=== PATIENT | female | born 1955 | race Caucasian/White ===

== ENCOUNTER 2018-04-30 06:44 | Day surgery (SDC) | payer OTHER ==
[~2018-04-30] VITALS: Ht 167.6 cm; Wt 55.1 kg
[~2018-04-30 06:44] MED LIST: B-121000 MCG PO; ELIQUIS 2.5 PO; LYRICA300 MG PO; NORVASC 5MG5 MG/TAB PO; PRINIVIL10 MG PO; PROAIR HFA0.09 MG/AC IH; RT ADVAIR HFA 1112 G IH; RT SPIRIVA18 MCG IH; ULTRAM 50MG TAB50 MG PO
[2018-04-30] MEDS ORDERED: FLONASEALLERGY NS (07:10)
[2018-04-30] MEDS ORDERED: ELIQUIS 5MG PO (07:11)
[2018-04-30] MEDS ORDERED: MOBIC15 MG PO (07:11)
[2018-04-30 07:12] VITALS: BP 132/67; PULSE 96; TEMP 99
[2018-04-30 09:28] VITALS: BP 134/68; PULSE 95; TEMP 98.3
[2018-04-30 09:43] VITALS: BP 130/70; PULSE 93
[2018-04-30 09:58] VITALS: BP 106/65; PULSE 94
[2018-04-30 10:13] VITALS: BP 102/64; PULSE 94
[2018-04-30 13:55] VITALS: BP 121/76; PULSE 98
== END 2018-04-30 10:35 | disposition home or self-care (01) ==
LOC: SDCO 06:44
DX: C79.89 Secondary malignant neoplasm of other specified sites (principal); J44.9 Chronic obstructive pulmonary disease, unspecified; R09.02 Hypoxemia; J30.9 Allergic rhinitis, unspecified; J38.01 Paralysis of vocal cords and larynx, unilateral; I10 Essential (primary) hypertension; M19.90 Unspecified osteoarthritis, unspecified site; K21.9 Gastro-esophageal reflux disease without esophagitis; G89.29 Other chronic pain; M54.5 Low back pain; Z88.8 Allergy status to other drugs, medicaments and biological substances; Z79.01 Long term (current) use of anticoagulants; Z86.718 Personal history of other venous thrombosis and embolism; Z87.891 Personal history of nicotine dependence
CPT/HCPCS: J0330; J2704; J7120

== ENCOUNTER 2018-12-01 21:13 | Inpatient (IN) | payer OTHER ==
[2018-12-01] VITALS (164 sets, daily range): BP systolic 129; BP diastolic 88; PULSE 117; TEMP 98.6; O2SAT 83–100
[~2018-12-01] VITALS: Ht 167.6 cm; Wt 48.0 kg
[~2018-12-01 21:13] MED LIST changes: +ELIQUIS 5MG PO; +FLONASEALLERGY NS; +MOBIC15 MG PO
--- NOTE | 2018-12-01 22:11 | NUR ---
Pt is very anxious, cannot sit still, and wants a cigarette. Pt informed we can provide her a nicotine patch. Pt denies pain upon arrival and during assessment states her bilat feet/legs hurt 710 described as shooting pain from peripheral neuropathy. Pts left ac iv from [facility] upon arrival was infiltrated; site was red and arm swollen. IV was discontinued and site was shown to hospitalist Ashutosh.
--- NOTE | 2018-12-01 22:30 | NUR ---
Pt is unfamiliar with own medications; names, doses, and last taken. Pt has no list.
--- NOTE | 2018-12-01 22:53 | NUR ---
Pt is removing nasal canula and pulling at cords. Pt redirected.
--- NOTE | 2018-12-01 23:47 | NUR ---
NICOTINE PATCH PLACED ON LEFT SHOULDER.
[2018-12-02] VITALS (618 sets, daily range): BP systolic 101–142; BP diastolic 63–104; PULSE 105–127; TEMP 98–99; O2SAT 53–100
[2018-12-02 00:12] LABS: TRICYCLIC ANTIDEPRESS URINE NEGATIVE
--- NOTE | 2018-12-02 03:00 | NUR ---
Pt pulled off ECG leads, sp02 monitor, gown, and right hand IV. Pt in recliner restless, naked, in and out of sleep. Pt reconnected to monitor and redressed in gown. Lab in room and pt kicking legs and making mouning sounds. Pt aware of location and person, but does not know president or current month unlike when she arrived.
[2018-12-02 03:36] LABS: HEMATOCRIT 38.3 % (37.0-47.0); HEMOGLOBIN 12.9 g/dl (12.5-16.0); MEAN CELL VOLUME 89 fl (80.0-100.0); MEAN CORPUSCULAR HEMOGLOBIN 30 pg (27.0-31.0); MEAN CORPUSCULAR HGB CONC 34 g/dl (33.0-37.0); MEAN PLATELET VOLUME 9.8 fl (7.4-10.4); PLATELET COUNT 407 K/mm3 (130-400)
[2018-12-02 03:45] LABS: ALANINE AMINOTRANSFERASE < 6 U/L (9-52); ALBUMIN 3.8 gm/dL (3.5-5.0); ALKALINE PHOSPHATASE 71 U/L (50-136); ANION GAP 12 mmol/L (7-16); AST,SGOT 16 U/L (15-37); BILIRUBIN,TOTAL 0.5 mg/dL (0.0-1.0); BLOOD UREA NITROGEN 26 mg/dL (7-17); CARBON DIOXIDE 25 mmol/L (22-30); CHLORIDE 102 mmol/L (98-107); CREATININE, serum 0.51 (0.52-1.25); GLUCOSE 228 mg/dL (74-106); POTASSIUM 3.3 mmol/L (3.4-5.0); SODIUM 139 mmol/L (137-145); TOTAL PROTEIN 7.1 gm/dL (6.4-8.2)
--- NOTE | 2018-12-02 03:45 | NUR ---
Pt pulling gown off, sitting in recliner, restless.
--- NOTE | 2018-12-02 03:54 | NUR ---
PT STATES SHE'S "REARRANGING" HER GOWN AND WHEN SHE PULLS GOWN OFF. PT WISHES TO REMAIN IN RECLINER FOR COMFORT. GOWN PLACED BACK ON PT.
[2018-12-02 04:08] LABS: BAND 21 % (0-10); NEUTROPHILS 79 % (42.0-75.2); PLATELET ESTIMATE INCREASED (NORMAL)
[2018-12-02 04:10] LABS: OVALOCYTES 1+
--- NOTE | 2018-12-02 04:30 | NUR ---
BEDSIDE STOOL OCCULT PERFORMED - POSTIVE OCCULT STOOL.
--- NOTE | 2018-12-02 04:45 | NUR ---
PT PLACED ON 6L OM.
--- NOTE | 2018-12-02 04:51 | NUR ---
PT REPEATEDLY REMOVING OXYMASK. PT REMINDED TO LEAVE OXYGEN ON FACE.
--- NOTE | 2018-12-02 06:55 | NUR ---
Bedside report received from SHAKILA Sheppard. Patient restless, biting at mitts, trying to climb out of bed, rolling from side to side, this RN attemped IV's times two, both blown, with 3 nurses holding patient down. Fall precautions in place, bed alarm on for patient safety.
--- NOTE | 2018-12-02 07:15 | NUR ---
REPORT GIVEN TO SHAKILA GARCIA.
--- NOTE | 2018-12-02 07:31 | NUR ---
Notified [facility] of need for picc line.
--- NOTE | 2018-12-02 08:31 | NUR ---
[facility], here to place picc line.
[2018-12-02 09:16] LABS: HEMATOCRIT 36.2 % (37.0-47.0)
[2018-12-02] MEDS ORDERED: ELIQUIS 2.5 PO ×2 (10:59→12:32)
[2018-12-02] MEDS ORDERED: NORCO 325 MG-51 TAB PO (11:00)
[2018-12-02] MEDS ORDERED: PREDNISONE20 MG PO (11:01)
--- NOTE | 2018-12-02 11:01 | NUR ---
Dr. Tolentino here to speak with patient's .
--- NOTE | 2018-12-02 11:04 | NUR ---
LR bolus initiated.
--- NOTE | 2018-12-02 11:25 | NUR ---
Dr. Tolentino here for intubation, time out performed at this time. Sarah,RN and RadhaRN, Patience,RT, Gonzalez Sheppard RT student, all at bedside. 1127- [address] given [address] Dr. Tolentino 1128- Blood suctioned from oral cavity. 7.5 ETT tubed placed, + ETCO2, blood noted in ETT. 50 mg propofol additional given. 1130- 10 mg vecuronium given 1132- Placed on ventilator by RT. 1136- Bronchoscopy performed by Dr. Tolentino. 1140- Precedex gtt turned off. Propofol gtt initiated at 10mcg/kg/min=2.9 ml/hr, Fentanyl gtt initiated at 25mcg/hr=1.3ml/hr.
--- NOTE | 2018-12-02 11:49 | NUR ---
JIM met with the patient and her Blas. Due to the patient's condition the patient could not answer assessement questions. The pt lives in [place] with Blas. The pt has a cane and is independent with ADLs. The pt's PCP is Dr Smith from the [facility] and the pt receives her medications from the [facility] with no difficulties. The pt does not have advanced directives in the EMR. Blas will transport the pt home upon discharge. JIM will continue to follow for recommendations and assist with any discharge needs.
[2018-12-02] MEDS ORDERED: LYRICA300 MG PO (12:29)
[2018-12-02] MEDS ORDERED: VITAMIN B12 1541 TAB PO (12:29)
[2018-12-02] MEDS ORDERED: SPIRIVA RE2.5 MCG/Ac IH (12:30)
[2018-12-02] MEDS ORDERED: NORVASC 5MG5 MG/TAB PO (12:30)
[2018-12-02] MEDS ORDERED: ULTRAM 50MG TAB50 MG PO (12:30)
[2018-12-02] MEDS ORDERED: RT ADVAIR HFA 1112 G IH (12:31)
[2018-12-02 13:13] LABS: INR 1.2 (0.8-3.0); PROTHROMBIN TIME 13.8 SECONDS (9.7-12.8)
--- NOTE | 2018-12-02 13:15 | NUR ---
signs consent for EGD with Dr. Burch, scheduled for 1690.
[2018-12-02 13:17] LABS: HEMATOCRIT 26.9 % (37.0-47.0); HEMOGLOBIN 8.9 g/dl (12.5-16.0)
--- NOTE | 2018-12-02 13:30 | NUR ---
To CT via bed, being bagged by Patience,RT, Gonzalez Sheppard RT student, PERI Baker tech, and this RN, Propofol gtt 10mcg/kg/min=2.9ml\hr, Fentanyl gtt 25mcg/hr=1.3ml/hr infusing for transport. LR and KCL on hold for transport.
--- NOTE | 2018-12-02 13:36 | NUR ---
VS in CT. 1336- 148/88, 128, 93% on FIO2 60% 1345- 138/82, 127, 93% on FI02 60% 1355-Noted blood in ET tube and circuit. Sats dropping to 90% 1356- Notified RadhaRN for assistance, PerlaRN notified for assistance, Dr. Tolentino notified. 1400- Patient back in ICU. 1402- PEA-code called, see code sheet.
--- NOTE | 2018-12-02 14:00 | NUR ---
Patient returned from CT, being bagged by Patience,RT. Pt. with copious amounts of hemoptosis. 1402- Patient PEA, see code sheet.
--- NOTE | 2018-12-02 14:02 | NUR ---
CPR STARTED ON PT UPON ARRIVAL BACK INTO ICU. TRANSPORT TO CT WAS UNEVENTFUL. TOWARDS THE END OF CT SCAN VENTILATOR WAS ALARMING LOW VE/HIGH PIP/LOW VT. UPON INSPECTION OF PT LARGE AMOUNTS OF WILFRID BLOOD WERE NOTED IN OETT. SCANNING WAS STOPPED AND OETT WAS SUCTIONED. A LARGE CLOT WAS NOTED TO BE IN MAN. MAN WAS DISCONNECTED FOR CLOT TO BE REMOVED. UPON TRANSPORT BACK TO ICU AGAIN THE ALARMS FOR PIP/VE AND LOW VT WERE SOUNDING. PT WAS TAKEN OFF VENT AND MANUALLY VENTILATED. IT WAS VERY HARD TO MANUALLY VENTILATE AT THIS TIME AND SPO2 WAS DROPPING ON 100% FIO2. PT WAS RUSHED BACK TO ICU WHERE OETT WAS SUCTIONED AND LAVAGED MULTIPLE TIMES FOR MULTIPLE LARGE CLOTS. ALL OF THIS WAS BEING DONE SIMULTANEOUSLY WITH CPR.
--- NOTE | 2018-12-02 15:10 | NUR ---
Initial Code Blue: Supervisor [employer] offered prayer for the and offered spiritual care for patient's .
--- NOTE | 2018-12-02 15:22 | NUR ---
Call placed to [facility]. Patient is a self declared donar on the registory. She meets critera for the [facility]. [facility] will call with further questions in the near future. Will await the call. Report given to patient's nurse, SHAKILA Allred. Confirmation # [id number]
--- NOTE | 2018-12-02 15:46 | NUR ---
left at this time.
--- NOTE | 2018-12-02 15:52 | NUR ---
Message left with Dr. Higgins's office that consult was no longer needed.
--- NOTE | 2018-12-02 15:55 | NUR ---
The patient . JIM met with Blas to discuss home arrangements. He chose [facility] in [place] . cloth napping supervisor contacted [facility] and is to contact home. There are no additional needs at this time.
--- NOTE | 2018-12-02 16:15 | NUR ---
Update given to [facility] with patients spouse's number. At this time patient would be a candidate for eye donation. Will recieve call back after spouse makes decision regarding donation
--- NOTE | 2018-12-02 16:30 | NUR ---
Post [place] care, all lines and tubes performed and removed by SHAKILA Díaz (stock house worker.) Saline drops to eyes, ice packs applied.
--- NOTE | 2018-12-02 17:45 | NUR ---
Call recieved from [facility]. They had spoken with family and they are in agreement with eye donation. [facility] agency will call this nurse back with ETA of procurement team.
--- NOTE | 2018-12-02 18:26 | NUR ---
Call recieved from [facility]. Will be here about 2029 tonight for eye procurement
--- NOTE | 2018-12-02 19:00 | NUR ---
Report received from Brigida JHAVERI. Pt has ice on eyes with reapplication of NS at this time.
--- NOTE | 2018-12-02 19:10 | NUR ---
Bedside report given to SHAKILA Hammonds, saline applied to eyes, ice packs in place.
--- NOTE | 2018-12-02 20:30 | NUR ---
Eye team here at this time. They decline needs of assistance at this time.
--- NOTE | 2018-12-02 20:45 | NUR ---
[employer] techs at bedside.
--- NOTE | 2018-12-02 23:30 | NUR ---
[employer] techs are complete and have left the facility.
--- NOTE | 2018-12-03 00:42 | NUR ---
Mortur[employer] personal took the pt body. No personal belongings were noted to be with pt at this time, verified by hotel housekeeper. Record of signed, copy made of face sheet and record- provided to [facility].
== END 2018-12-03 00:42 | disposition expired | DRG 374 ==
LOC: ICU 21:13
PROVIDERS: Internal Medicine Gastroenterology; Internal Medicine Pulmonary Disease; Nurse Practitioner; ADMIT Family Medicine
PROC: 0BH17EZ Insertion of Endotracheal Airway into Trachea, Via Natural or Artificial Opening (ICD-10-PCS; principal; 2018-12-02)
PROC: 5A1935Z Respiratory Ventilation, Less than 24 Consecutive Hours (ICD-10-PCS; 2018-12-02)
PROC: 0BDC8ZX Extraction of Right Upper Lung Lobe, Via Natural or Artificial Opening Endoscopic, Diagnostic (ICD-10-PCS; 2018-12-02)
PROC: 02HV33Z Insertion of Infusion Device into Superior Vena Cava, Percutaneous Approach (ICD-10-PCS; 2018-12-02)
DX: C78.89 Secondary malignant neoplasm of other digestive organs (principal); J96.01 Acute respiratory failure with hypoxia; C79.31 Secondary malignant neoplasm of brain; J44.1 Chronic obstructive pulmonary disease with (acute) exacerbation; E87.2 Acidosis; R04.2 Hemoptysis; C34.90 Malignant neoplasm of unspecified part of unspecified bronchus or lung; G93.40 Encephalopathy, unspecified; I72.8 Aneurysm of other specified arteries; F41.9 Anxiety disorder, unspecified; G62.9 Polyneuropathy, unspecified; F32.9 Major depressive disorder, single episode, unspecified; Z79.01 Long term (current) use of anticoagulants; Z79.891 Long term (current) use of opiate analgesic; Z88.2 Allergy status to sulfonamides; Z86.718 Personal history of other venous thrombosis and embolism; Z85.118 Personal history of other malignant neoplasm of bronchus and lung; Z87.891 Personal history of nicotine dependence; Z92.21 Personal history of antineoplastic chemotherapy
CPT/HCPCS: 99223-AI; A4216; C1751; C9113; J0171; J0456; J0461; J0692; J1630; J2060; J2704; J2920; J2930; J3010; J3480; J7050; J7120; Q9967